=== PATIENT | female | born 1985 | race African-American/Black ===

== ENCOUNTER 2020-10-11 14:28 | Emergency (ER) | payer OTHER ==
[~2020-10-11] VITALS: Ht 162.6 cm; Wt 98.0 kg
[2020-10-11 14:32] VITALS: BP 151/101
[2020-10-11] MEDS ORDERED: ACETAMINOPHEN 325MG TABLET PO ONE (15:15)
[2020-10-11] MEDS ORDERED: IBUPROFEN 400MG TABLET PO ONE (15:15)
== END 2020-10-11 18:21 | disposition left against medical advice (07) ==
LOC: ER 14:41
DX: R10.30 Lower abdominal pain, unspecified (principal); R11.0 Nausea; R03.0 Elevated blood-pressure reading, without diagnosis of hypertension; M79.642 Pain in left hand; M79.641 Pain in right hand
CPT/HCPCS: 93005; 99283